=== PATIENT | male | born 1980 | race Two or more races ===

== ENCOUNTER 2022-06-29 09:51 | Emergency (ER) | payer OTHER ==
[~2022-06-29] VITALS: Ht 177.8 cm; Wt 120.2 kg
[2022-06-29] MEDS ORDERED: VASOTEC20 M1 (10:02)
== END 2022-06-29 13:26 | disposition home or self-care (01) ==
LOC: ER 09:51
DX: R05.9 Cough, unspecified (principal); I10 Essential (primary) hypertension